=== PATIENT | female | born 1945 | race Caucasian/White ===

== ENCOUNTER 2024-06-15 06:33 | Day surgery (SDC) | payer MEDICARE, MEDICAID ==
[~2024-06-15] VITALS: Ht 149.9 cm; Wt 53.4 kg
[~2024-06-15 06:33] MED LIST: B-12100010 PO; EPIP0.3I2 SC; MAGN296S37 PO; TIRO50CA3 PO; VITA200020 PO; VITADRO5 PO
[2024-06-15] MEDS ORDERED: LIDOCAINE 2% 100MG/5ML SDV (FOR ANES.) As Ordered ONE (07:06)
[2024-06-15] MEDS ORDERED: GLYCOPYRROLATE INJ 0.2 MG/ML 2 ML VIAL As Ordered ONE (07:07)
[2024-06-15] MEDS: NS 1,000 ML IV ONE (07:15)
[2024-06-15] MEDS ORDERED: propofoL 200 MG/20 ML VIAL As Ordered ONE (08:21)
[2024-06-15 09:00] VITALS: BP 114/75; O2SAT 97
== END 2024-06-15 09:17 | disposition home or self-care (01) ==
LOC: M OPP 06:33
PROVIDERS: ATTEND Internal Medicine Gastroenterology
DX: D12.5 Benign neoplasm of sigmoid colon (principal); K63.5 Polyp of colon; K63.89 Other specified diseases of intestine; K64.8 Other hemorrhoids; K57.30 Diverticulosis of large intestine without perforation or abscess without bleeding; Z86.010 Personal history of colon polyps; K92.1 Melena; Z79.622 Long term (current) use of Janus kinase inhibitor; Z79.890 Hormone replacement therapy; Z88.0 Allergy status to penicillin; Z88.1 Allergy status to other antibiotic agents; Z88.2 Allergy status to sulfonamides; Z91.030 Bee allergy status; Z91.040 Latex allergy status; Z91.041 Radiographic dye allergy status; Z91.048 Other nonmedicinal substance allergy status; Z88.8 Allergy status to other drugs, medicaments and biological substances
CPT/HCPCS: 45380; 45385; 88305; J1596